=== PATIENT | female | born 1995 | race Caucasian/White ===

== ENCOUNTER 2017-07-13 13:49 | Emergency (ER) | payer MEDICAID ==
[~2017-07-13] VITALS: Ht 157.5 cm; Wt 66.0 kg
[2017-07-13 13:50] VITALS: BP 97/50; PULSE 82; RESP 16; TEMP 97.7; O2SAT 98
[2017-07-13] MEDS ORDERED: PENI500T PO (14:48)
[2017-07-13] MEDS ORDERED: MAGICADU2 SWISH-SPIT (14:48)
--- NOTE | 2017-07-13 14:50 | PD ---
HPI Chief Complaint: Oral / Dental Pain or Problem Time Seen by Provider: 14:47 Travel History International Travel<30 days: No Contact w/Intl Traveler<30days: No Traveled to known affect area: No History of Present Illness HPI 21-year-old female here with dental pain. 4 days. Throbbing pain, constant, localized to the left mandibular molar region. Pain is worse when chewing, unrelieved with ibuprofen. No fevers, chills. No other complaints. PFSH Past Medical History ?: Not LMP: 07/14/17 Social History Alcohol Use: No Tobacco Use: Yes Allergies-Medications (Allergen,Severity, Reaction): Coded Allergies: No Known Allergies (Verified Allergy, Unknown, 07/13/17) Reported Meds & Prescriptions Reported Meds & Active Scripts Active No Active Prescriptions or Reported Medications Review of Systems General / Constitutional: No: Fever, Chills HENT: Positive: Dental Difficulties Physical Exam Narrative GENERAL: Well-nourished female in no acute distress SKIN: Warm and dry. HEAD: Atraumatic. Normocephalic. EYES: Pupils equal and round. No scleral icterus. No injection or drainage. ENT: No nasal bleeding or discharge. Mucous membranes pink and moist. Soft tissue swelling to the left mandibular gum line. Tender to palpation. The left third mandibular molar is impacted and slightly decayed. NECK: Trachea midline. No JVD. CARDIOVASCULAR: Regular rate and rhythm. No murmur appreciated. RESPIRATORY: No accessory muscle use. Clear to auscultation. Breath sounds equal bilaterally. Data Data Last Documented VS Vital Signs Date Time Temp Pulse Resp B/P (MAP) Pulse Ox O2 Delivery O2 Flow Rate FiO2 07/13/17 13:50 97.7 82 16 97/50 (66) 98 Room Air MDM Medical Decision Making Medical Screen Exam Complete: Yes Emergency Medical Condition: Yes Medical Record Reviewed: Yes Differential Diagnosis Periodontal abscess, dental caries, pulpitis, impaction Narrative Course The patient appears to have an impacted left third molar with likely periodontal abscess formation. She is being discharged with penicillin. Diagnosis Primary Impression: Periodontal abscess Additional Impression: Impacted molar Additional Instructions: Medication as prescribed. Ibuprofen and Tylenol for pain. Follow-up with a dentist for definitive therapy. Med/Other Pt SpecificInfo: Prescription(s) given Scripts Penicillin V Potassium (Penicillin V Potassium) 500 Mg Tab 500 MG PO Q8H for Infection for 7 Days, #21 TAB 0 Refills Prov: Tiffany Swanson MD 07/13/17 Auejdsmb-Vivrrkwumejwvcu-Ayxgwsxej Liq (Magic Mouthwash Adult Liq) 120 Ml Susp 10 ML SWISH-SPIT ACHS for Mouth sores, #120 ML 1 Refill Each 5mL contains: Nystatin 200,000units, Diphenhydramine 4.25mg, Viscous Lidocaine 10mg, [place] syrup 0.8 mL Prov: Tiffany Swanson MD 07/13/17 Disposition: 01 DISCHARGE HOME Condition: Stable Louie Baker Jul 13, 2017 14:50
== END 2017-07-13 15:00 | disposition home or self-care (01) ==
LOC: NEPK 13:49
DX: K05.219 Aggressive periodontitis, localized, unspecified severity (principal); K01.1 Impacted teeth; Z72.0 Tobacco use
CPT/HCPCS: 99284